=== PATIENT | female | born 1965 | race Caucasian/White ===

== ENCOUNTER 2020-10-14 08:47 | Emergency (ER) | payer OTHER, SELFPAY ==
--- NOTE | ~2020-10-14 | XR_ITS ---
EXAMINATION: XR abdomen/kub 1V EXAM DATE: 10/14/2020 09:33 INDICATION: Blood in urine, history of kidney stones . TECHNIQUE: Frontal projection(s) of the abdomen for interpretation. Comparison is made to prior exami nation from 06/03/2015. FINDINGS: There is moderate amount of colonic stool and gas. No small bowel dilation, nonobstructiv e bowel gas pattern. There are no suspicious calcifications identified. There is no organomegaly suspected. The bones are unremarkable. IMPRESSION: Moderate amount of colonic stool. Reviewed, dictated and finalized at location B.
[2020-10-14 08:57] VITALS: BP 136/75; PULSE 61; RESP 16; TEMP 36.1; O2SAT 100
--- NOTE | 2020-10-14 09:58 | ED.FEMALEGU ---
HPI - Female Genitourinary General Chief complaint: Urogenital-Female Stated complaint: Bllod in Urine Time Seen by Provider: 10/14/20 09:58 Source: patient, RN notes reviewed and old records reviewed Mode of arrival: ambulatory Limitations: no limitations History of Present Illness HPI Narrative: 55-year-old female who presents to [facility] with complaints of blood in urine since Saturday with history of kidney stones and some tenderness on the right mid to lower abdomen on palpation. Patient denies any fever chills or sweats, denies any CVA tenderness, denies any burning frequency or urgency with her urination. Patient states she is getting ready to go on special trip in the next few days and was concerned it could be stone. MD elicited complaint: other (Hematuria) Pertinent past history: other (kidney stones) Onset (ago): day(s) (day 4) Severity scale (1-10): 2 Quality of pain: other (Only on palpation) Vaginal discharge: none Vaginal bleeding: none Urinary symptoms: Hematuria Exacerbating factors: none Relieving factors: none Associated symptoms: abdominal pain (Only on palpation to right) Treatment prior to arrival: none Sexual activity: Yes Patient : No Related Data Home Medications Medication Instructions Recorded Confirmed aspirin [Aspir-81] 81 mg PO DAILY 10/14/20 10/14/20 bempedoic acid [Nexletol] 180 mg PO DAILY 10/14/20 10/14/20 biotin 5 mg PO DAILY 10/14/20 10/14/20 cholecalciferol (vitamin D3) 25 mcg PO DAILY 10/14/20 10/14/20 [Vitamin D3] coenzyme [id number] E [CoQ10 SG 1 cap PO DAILY 10/14/20 10/14/20 100] levocetirizine [Xyzal] 5 mg PO DAILY PRN 10/14/20 10/14/20 lisinopril 10 mg PO DAILY 10/14/20 10/14/20 tretinoin 1 applic TOPICAL EVERY OTHER DAY 10/14/20 10/14/20 valacyclovir 500 mg PO PRN PRN 10/14/20 10/14/20 Allergies Allergy/AdvReac Type Severity Reaction Status Date / Time Sulfa (Sulfonamide Allergy Intermediate RASH Verified 10/14/20 09:50 Antibiotics) Review of Systems Review of Systems: CONSTITUTIONAL: Denies fever, chills, or sweats. EYES: Denies visual changes, redness, or discharge. ENT: Denies rhinorrhea, congestion, sore throat, or otalgia. CARDIOVASCULAR: Denies chest pain, palpitations, or edema. RESPIRATORY: Denies cough or dyspnea. GASTROINTESTINAL: Tenderness to right mid abdominal area, no nausea, vomiting, or diarrhea. No CVA tenderness GENITOURINARY: Denies dysuria positive hematuria. SKIN: Denies rash or itching. MUSCULOSKELETAL: Denies back pain, joint pain, or myalgia. NEUROLOGIC: Denies headache, numbness, or weakness. PSYCHIATRIC: Denies anxiety or depression. All systems reviewed & are unremarkable except as noted in HPI and below PMFSH Past Medical History Medical History (Updated 10/17/20 @ 14:12 by Jeanne Motta NP) Dyslipidemia Kidney stones Myocardial infarction Seasonal allergies Surgical History Surgical History (Updated 10/17/20 @ 14:16 by Jeanne Motta NP) H/O inguinal hernia repair H/O: hysterectomy Previous section Family History Family History Mother , HEART / STROKE No problems noted. Father , HEART PROBLEMS No problems noted. Social History Social History Smoking status: Never smoker Alcohol use details: DRINK ONCE IN A BLUE HANLEY Substance use: never Gender identity (if verbalized by the patient): Female Comments At time of signature, agree with nursing past medical, surgical, social and family history. There is no relevant family history pertinent to the presenting complaint Exam Narrative: GENERAL: Well-appearing, well-nourished, and in no acute distress. HEAD: Normocephalic, atraumatic. EYES: PERRLA and EOMI. ENT: Nares clear, no rhinorrhea or epistaxis. Mucous membranes moist. NECK: Supple.no lymphadenopathy CHEST: Clear to auscultation
== END 2020-10-14 10:08 | disposition short-term general hospital (02) ==
PROVIDERS: Emergency Provider Registered Nurse; PCP Internal Medicine
DX: R31.0 Gross hematuria (principal); E78.5 Hyperlipidemia, unspecified; I25.2 Old myocardial infarction
CPT/HCPCS: 74018; 81003; 99213; G0463

== ENCOUNTER 2020-10-14 10:24 | Emergency (ER) | payer OTHER, SELFPAY ==
--- NOTE | ~2020-10-14 | CT_ITS ---
EXAMINATION: CT abdomen pelvis wo/w con DATE: 10/14/2020 13:19 INDICATION: Gross hematuria TECHNIQUE: Computed tomography (CT) of the abdomen and pelvis was performed without intravenous contr ast. CT of the abdomen and pelvis was then performed with a total of 130 mL Omnipaque-350 intravenous contrast using a double-bolus technique for simultaneous opacification of the renal parenchyma and r enal collecting system. The dose-length product was 971.88 mGy-cm. COMPARISON: 04/29/15 FINDINGS: Minimal scattered discoid atelectasis at the bilateral lung bases. Heart size is normal. No pericardi al or pleural effusion. Liver, gallbladder, spleen, pancreas and bilateral adrenal glands are normal. 4 mm low-attenuation likely renal cyst at the lower pole of the right kidney. 1-2 mm nonobstructing stone at the lower pole of the left kidney. No ureteral stones or hydronephrosis. Bilateral renal col lecting systems, the left ureter and proximal to mid right ureter are opacified with contrast and dem onstrate no evident filling defects or mucosal irregularities. Bladder is normal. The uterus is not i dentified and has likely been surgically resected. Moderate amount of stool in the redundant cecum wh ich situated in the deep pelvis at the uterine fossa. The appendix is not visualized. No pericecal in flammatory change to suggest acute appendicitis. No bowel obstruction. Small amount of likely physiol ogic free fluid in the cul-de-sac. No free intraperitoneal gas. Mild scattered degenerative skeletal changes in the spine and pelvis. IMPRESSION: 1. 1-2 mm nonobstructing left renal stone. No ureteral stones or hydronephrosis. Reviewed, dictated and finalized at location A. IMPRESSION: 1. 1-2 mm nonobstructing left renal stone. No ureteral stones or hydronephrosis .
[2020-10-14 10:36] VITALS: BP 163/80; PULSE 55; RESP 16; TEMP 36.4; O2SAT 100
[2020-10-14 10:48] VITALS: BP 163/80; PULSE 55; RESP 18; TEMP 36.2; O2SAT 100
[2020-10-14 11:30] VITALS: BP 142/68; PULSE 60; RESP 16; TEMP 36.6; O2SAT 100
--- NOTE | 2020-10-14 11:43 | ED.FEMALEGU ---
HPI - Female Genitourinary General Chief complaint: Urogenital-Female Stated complaint: blood in urine, sent by urgent care Time Seen by Provider: 10/14/20 10:45 Source: patient and RN notes reviewed Mode of arrival: ambulatory Limitations: no limitations History of Present Illness HPI Narrative: This is a 55 year old female with history of hypertension and CAD who presents for evaluation of hematuria. She noticed blood in her urine on Saturday. She reports her hematuria resolved on Saturday and she noticed a small amount yesterday. Today she reports increasing blood in her urine. She states if she drinks more fluid, her urine seems to clear. She reports drinking very little last night and today. She has history of kidney stones so she did not think much of her hematuria. She reports mild right side abdominal discomfort. She denies nausea, vomiting or fever. She takes aspirin 81 mg for history of heart attack years ago. Related Data Home Medications Medication Instructions Recorded Confirmed aspirin [Aspir-81] 81 mg PO DAILY 10/14/20 10/14/20 bempedoic acid [Nexletol] 180 mg PO DAILY 10/14/20 10/14/20 biotin 5 mg PO DAILY 10/14/20 10/14/20 cholecalciferol (vitamin D3) 25 mcg PO DAILY 10/14/20 10/14/20 [Vitamin D3] coenzyme K98-[id number] E [CoQ10 SG 1 cap PO DAILY 10/14/20 10/14/20 100] levocetirizine [Xyzal] 5 mg PO DAILY 10/14/20 10/14/20 lisinopril 10 mg PO DAILY 10/14/20 10/14/20 tretinoin 1 applic TOPICAL HS 10/14/20 10/14/20 valacyclovir 500 mg PO DAILY 10/14/20 10/14/20 Allergies Allergy/AdvReac Type Severity Reaction Status Date / Time Sulfa (Sulfonamide Allergy Intermediate RASH Verified 10/14/20 09:50 Antibiotics) Review of Systems Review of Systems: All systems reviewed & are unremarkable except as noted in HPI and below PMFSH Past Medical History Medical History (Updated 10/14/20 @ 13:59 by Virginia Piedra MD) Myocardial infarction Surgical History Surgical History (Updated 10/14/20 @ 10:17 by Jeanne Motta NP) H/O: hysterectomy Family History Family History Mother , HEART / STROKE No problems noted. Father , HEART PROBLEMS No problems noted. Social History Social History Smoking status: Never smoker Alcohol use details: DRINK ONCE IN A BLUE HANLEY Substance use: never Gender identity (if verbalized by the patient): Female Exam Const: General: no acute distress and alert Orientation/consciousness: patient oriented x3 Eyes: EOM: EOMs intact bilaterally Chest: Chest palpation & inspection: normal inspection of the chest Resp: Effort & Inspection: normal respiratory effort and no retractions Auscultation: clear to auscultation bilaterally Cardio: Rate: regular rate Rhythm: regular rhythm Heart sounds: no murmurs GI: GI Palp: Yes Soft to palpation, No Tenderness to palpation present (GI) and No Guarding due to palpation present (GI) Auscultation: normal bowel sounds Skin: General skin exam: normal color Rashes: no rashes Neuro: General: patient oriented x3, moves all extremities and CN's II-XI intact bilaterally Course Reevaluation(s) Reevaluation #1: I discussed with patient CT findings and labs. URine shows microscopic hematuria but no UTI. I discussed follow up with pcp or urology. She states she will follow up with PCP Date: 10/14/20 Time: 13:57 Vital Signs Vital signs: Vital Signs Temperature 97.6 F 10/14/20 10:36 Pulse Rate 55 L 10/14/20 10:36 Respiratory Rate 16 10/14/20 10:36 Blood Pressure 163/80 H 10/14/20 10:36 Pulse Oximetry 100 10/14/20 10:36 Temperature 97.8 F 10/14/20 11:30 Pulse Rate 62 10/14/20 14:18 Respiratory Rate 16 10/14/20 14:18 Blood Pressure 142/80 H 10/14/20 14:18 Pulse Oximetry 100 10/14/20 14:18 MDM - Female Genitour
[2020-10-14 11:45] LABS: Basophils Absolute Auto 0.1 K/mm3 (0.0-0.1); Basophils Percent Auto 1.2 % (0.2-1.2); Eosinophils Absolute Auto 0.1 K/mm3 (0-0.3); Hematocrit 43.1 % (37.0-47.0); Hemoglobin 14.4 g/dL (12.0-15.0); Immature Granulocyte Absolute 0.01 K/mm3 (0.00-0.031); Immature Granulocyte Percent A 0.2 % (0-0.5); Lymphocytes Absolute Auto 1.51 K/mm3 (0.9-3.2); Mean Corpuscular HGB Conc 33.4 g/dl (32-36); Mean Corpuscular Hemoglobin 32.5 pg (26-34); Mean Corpuscular Volume 97.3 fl (80-100); Mean Platelet Volume 10.3 fl (7.4-10.4); Monocytes Absolute Auto 0.4 K/mm3 (0.1-0.6); Neutrophils Absolute Auto 3.8 K/mm3 (1.3-6.7); Neutrophils Percent Auto 65.6 % (45.5-73.1); Platelet Count Result 228 k/mm3 (150-375); Red Blood Count 4.43 M/mm3 (4.2-5.4); Red Cell Distribution Width 12.7 % (11.5-14.5); White Blood Count 5.8 K/mm3 (4.5-10.0)
[2020-10-14 11:52] LABS: Add Urine Microscopic? YES; Appearance Urine Cloudy (Clear); Bilirubin Urine Negative (Negative); Blood Urine 3+ (Negative); Color Urine Yellow (Yellow); Glucose Urine UA Negative (Negative); Ketones Urine Negative (Negative); Leukocyte Esterase Ur Negative LEU/UL (Negative); Mucus Urine Rare /lpf; Nitrate Urine Negative (Negative); Protein Urine 1+ mg/dL (Negative); RBC Urine >75 /hpf (0-2); Specific Grav Ur 1.021 (1.001-1.035); Squamous Epithelial Cell Urine Occasional /hpf (Few); Urobilinogen Urine Negative mg/dL (<2.0)
[2020-10-14 11:57] LABS: Alanine Aminotransferase 18 U/L (4-35); Albumin Level 4.5 g/dL (3.5-5.1); Alkaline Phosphatase 75 U/L (38-126); Anion Gap 8 mmol/L (8-16); Aspartate Amino Transferase 30 U/L (14-36); Bilirubin,Total 0.7 mg/dL (0.2-1.3); Blood Urea Nitrogen 19 mg/dL (7-17); Carbon Dioxide 28 mmol/L (22-30); Chloride 103 mmol/L (98-107); Estimated CRCL calculation 62 ml/min; Estimated Glomerular Filt Rate > 60; Glucose 86 mg/dL (65-110); Potassium 4.4 mmol/L (3.4-5.0); Sodium 139 mmol/L (137-145)
[2020-10-14] MEDS: SODIUM CHLORIDE 0.9% IV 1,000 ML 999 ML IV CONT (12:16)
[2020-10-14 14:18] VITALS: BP 142/80; PULSE 62; RESP 16; O2SAT 100
== END 2020-10-14 14:20 | disposition home or self-care (01) ==
PROVIDERS: Emergency Provider General Practice; PCP Internal Medicine
DX: R31.0 Gross hematuria (principal); N20.0 Calculus of kidney; I10 Essential (primary) hypertension; I25.10 Atherosclerotic heart disease of native coronary artery without angina pectoris; I25.2 Old myocardial infarction; Z79.82 Long term (current) use of aspirin
CPT/HCPCS: 36415; 74178; 80053; 81001; 85025; 96360; 99284; J7030; Q9967

== ENCOUNTER 2021-02-21 13:48 | Outpatient (CLI) | payer OTHER, SELFPAY ==
--- NOTE | ~2021-02-21 | XR_ITS ---
EXAMINATION: XR abdomen/kub 1V EXAM DATE: 02/21/2021 14:09 INDICATION: Gross hematuria. TECHNIQUE: Frontal projection of the upper abdomen, frontal projection lower abdomen/pelvis for inter pretation. Comparison is made to prior examination from 10/14/2020. FINDINGS: There is contrast within the bladder and renal calyces. No recent injection at this instit ution identified. Mildly patulous appearing left renal pelvis, similar appearance on a CT urogram whi ch was performed in September. No bladder diverticula or caliectasis. Mild bony degenerative changes. Mode rate amount of colonic stool and gas. IMPRESSION: Contrast in collecting system. Correlate with any CT scan obtained immediately prior. Reviewed, dictated and finalized at location G. K LIFTER
== END 2021-02-21 13:49 | disposition home or self-care (01) ==
LOC: ANHIMG 13:54
PROVIDERS: PCP Internal Medicine; Visit Provider Urology
DX: R31.0 Gross hematuria (principal)
CPT/HCPCS: 74018

== ENCOUNTER 2021-03-01 09:14 | Outpatient (CLI) | payer OTHER, SELFPAY ==
--- NOTE | 2021-03-01 09:28 | ECG_ITS ---
Measurements Intervals [place] Rate: 65 P: 62 VT: 138 QRS: 36 QRSD: 84 T: 57 QT: 395 QTc: 412 Interpretive Statements SINUS RHYTHM WITH SINUS ARRHYTHMIA CANNOT RULE OUT SEPTAL INFARCT, AGE INDETERMINATE BASELINE ARTIFACT- I, II, III, AVR, AVL, AVF, V1-V6 ABNORMAL ECG Electronically Signed On 03-01-2021 10:51:09 TYPEWRITER ALIGNER by Toney Petersen D.O.
[2021-03-01 09:56] LABS: INR 0.9; Partial Thromboplastin Time 24.7 SECONDS (22.3-36.8); Prothrombin Time 12.2 Seconds (11.1-14.7)
== END 2021-03-01 09:15 | disposition home or self-care (01) ==
LOC: ANHSURGERY 09:19
PROVIDERS: PCP Internal Medicine; Visit Provider Urology
DX: N20.0 Calculus of kidney (principal); I10 Essential (primary) hypertension; Z01.818 Encounter for other preprocedural examination; R94.31 Abnormal electrocardiogram [ECG] [EKG]
CPT/HCPCS: 36415; 85610; 85730; 93005

== ENCOUNTER 2021-03-03 03:28 | Day surgery (SDC) | payer OTHER, SELFPAY ==
[2021-02-28 10:50] VITALS: BMI 21.4
--- NOTE | 2021-02-28 13:00 | PC.NURSE ---
Report to the Outpatient Waiting Room, entrance under the green pavilion located off [facility], at 1000 on date 03-03-21. OR Time: 1200. - You and your visitor will be asked a series of questions to screen for COVID 19 for your protection. - A mask is required within the hospital. - Only one visitor is allowed at this time. Patient visitors will be guided where to wait when not with patient. Preoperative COVID Testing Requirements: No COVID Test needed if: (proof is required; if not received patient will have Rapid Test prior to entry) - Patient has received COVID Vaccine at least 14 days prior to procedure date or - Patient has positive COVID test result within last 90 days of surgery date. COVID Test needed if above criteria is not met If not COVID vaccinated a COVID test must be conducted within 72 hours of surgery and patient is asked to isolate self from time of testing until procedure. You will go to the [email or web address] for your COVID testing. The [email or web address] [facility] site is located at the corner of [address] [facility]. You will only be called if COVID results are positive and your surgeon may reschedule your elective surgery date. Patients may have clear liquids (water, carbonated beverages, clear teas, apple juice) until 3 hours prior to surgery with a maximum of 20 ounces. 0900 - No food from midnight until time of surgery - Infants may have breast milk until 4 hours before surgery, infant formula 6 hours prior to surgery. - Children will be allowed to drink immediately following surgery. If applicable, please bring a bottle or sippy cup to assist with drinking. Juice, water, soda, and popsicles are readily available. For infants on formula, please bring formula the day of surgery. Pacifiers are allowed. Take the following medications with a SIP of water the morning of surgery: Tylenol if needed Medications to discontinue per physician: aspirin per Dr. Kohli; vitamins and supplements 02-28-21 Please no make-up, nail occitan, hairspray, perfume, deodorant, or body powder the day of surgery. No jewelry (including any body piercings) or valuables the day of surgery, leave them at home. Please take a shower or bath the night before, or the morning of, surgery with an antibacterial soap. Wear comfortable, loose fitting clothing. Children are encouraged to wear pajamas. - Jewelry must be removed prior to entering the operating room. Rings and piercings that are not removed may be cut off. - The hospital will not accept responsibility for valuables. - Please leave all valuables, including medications, at home the day of surgery. If you are going home after surgery, a licensed mixer driver must drive you home. - NO public transportation without another adult. - We recommend that an adult stay with you for 24 hours following discharge. - We also recommend that you do not drive, make important decision, drink alcoholic beverages, or take any drugs that were not prescribed by your health care provider for at least 24 hours after your discharge time. For Pediatric surgeries, we recommend two adults accompany the child home (only one inside the building at this time). Follow any additional instructions given to you from your surgeon. Telephone instructions given to Magaly Sánchez and asked if any additional questions and then verbalized understanding. Patient advised to call surgeon office or pre surgery nurse liaison [phone] if any additional questions.
[2021-03-03] VITALS (11 sets, daily range): BP systolic 146–166; BP diastolic 71–90; PULSE 53–63; RESP 13–16; TEMP 36.3–36.6; O2SAT 97–100
--- NOTE | ~2021-03-03 | XR_ITS ---
EXAMINATION: XR abdomen/kub 1V EXAM DATE: 03/03/2021 10:44 INDICATION: Left-sided stone. TECHNIQUE: Frontal projection of the upper abdomen, frontal projection lower abdomen/pelvis for inter pretation. Correlation is made to KUB 02/21/2021. FINDINGS: There is moderate amount of colonic stool and gas. No small bowel dilation, nonobstructiv e bowel gas pattern. There are no suspicious calcifications identified. There is no organomegaly suspected. The bones are unremarkable. Lung bases unremarkable. IMPRESSION: Moderate amount of colonic stool. Reviewed, dictated and finalized at location B. RISK SPECIALIST
--- NOTE | 2021-03-03 06:47 | WPDHPUPDATE1 ---
History and Physical Update Update Date/Time: 03/03/21 06:47 History and Physical has been reviewed, including an updated exam of the patient. There are NO changes in the patient's condition. Risks, benefits, and alternatives have been discussed and questions answered. Patient agrees to proceed with procedure.
--- NOTE | 2021-03-03 11:15 | P.PNAN_ITS ---
Anes - Initial Pre Proc Eval Procedure: Operation Date: 03/03/21 12:30 Proposed Procedures p Cystoscopy, Left Retrograde Pyelogram, Left Stent Placement - Michael Kohli MD s Left Extracorporeal Shock Wave Lithotripsy - Michael Kohli MD Date/Time: 03/03/21 11:15 Surgeon: Michael Kohli MD Pre Op Diagnosis: kidney stones Patient Data Age: 55 Gender: F Height: 1.75 m Weight: 65.77 kg Allergies Allergy/AdvReac Type Severity Reaction Status Date / Time Sulfa (Sulfonamide Allergy Intermediate RASH Verified 03/03/21 11:02 Antibiotics) Home Medications Medication Instructions Recorded Confirmed Type aspirin [Aspir-81] 81 mg PO DAILY 10/14/20 03/03/21 History biotin 5 mg PO DAILY 10/14/20 03/03/21 History cholecalciferol (vitamin D3) 25 mcg PO DAILY 10/14/20 03/03/21 History [Vitamin D3] coenzyme [id number] E [CoQ10 SG 1 cap PO DAILY 10/14/20 03/03/21 History 100] levocetirizine [Xyzal] 5 mg PO DAILY PRN 10/14/20 03/03/21 History lisinopril 10 mg PO DAILY 10/14/20 03/03/21 History tretinoin 1 applic TOPICAL EVERY OTHER DAY 10/14/20 03/03/21 History acetaminophen [Tylenol] 650 mg PO Q6H PRN 02/28/21 03/03/21 History gyazgbhk-zdr-vsmz-FA-lutein 1 tablet PO DAILY 02/28/21 03/03/21 History [Multivitamin Women 50 Plus] omega-3 fatty acids [Fish Oil] 1,000 mg PO DAILY 02/28/21 03/03/21 History Patient hx anesthesia problems: none Family hx anesthesia problems: none Results Review: All pre-operative results and documents have been reviewed as part of the pre-operative evaluation. [facility] Past Medical History Medical History Dyslipidemia Kidney stones Myocardial infarction Seasonal allergies Surgical History Surgical History H/O inguinal hernia repair H/O: hysterectomy Previous section Family History Family History Mother , HEART / STROKE No problems noted. Father , HEART PROBLEMS No problems noted. Social History Social History Smoking status: Never smoker Second hand tobacco smoke exposure: No Alcohol intake: current Alcohol use details: DRINK ONCE IN A BLUE HANLEY Substance use: never Substance use type: does not use Living arrangements: with family Gender identity (if verbalized by the patient): Female Spiritual care concerns: No Anes - Eval Final PreProcedure Day of Procedure 03/03/21 11:15 Patient weight: normal Heart: regular rate and rhythm Lungs: clear to auscultation Airway: Mallampati scale class II Neurological: alert and oriented Last oral intake: >/= 8 hours ASA classification: III Emergent: no Anesthetic plan: proceed Anesthesia type and monitoring: general LMA and standard monitoring Results Review: All pre-operative results and documents have been reviewed as part of the pre-operative evaluation. Informed Consent: The patient's anesthetic plan and its attendant risks and benefits were discussed with the patient/family/POA. Questions were solicited and answers provided to the satisfaction of the patient/family/POA.
[2021-03-03] MEDS: LACTATED RINGERS 1,000 ML 30 ML IV CONT (11:17)
[2021-03-03] MEDS: ceFAZolin 2 GM/D5W 50 ML 2 GM/50 ML BAG IVPB (11:49)
[2021-03-03] MEDS: KETOROLAC 30 MG/ML VIAL (*BKC) IV PUSH ×2 (11:58→14:20)
--- NOTE | 2021-03-03 12:17 | P.OP_ITS ---
Procedure Note - Detailed Date of Procedure 03/03/21 Pre-op Diagnosis 6mm left renal stone Gross hematuria Post-op Diagnosis same Procedure Performed Cystoscopy, left ESWL Surgeon Michael Kohli MD Anesthesia general Description of Procedure The patient was brought to the operative suite where she was placed in the frog- legged position on the Dornier lithotripter table. Flexible cystoscopy was undertaken with a 16F flexible cystoscopy. Her urethra and bladder neck were endoscopically normal. The bladder mucosa was normal and there was a single, orthotopic ureteral orifice bilaterally. A 0.035 glidewire was advanced into the left renal pelvis under fluoroscopy to help identify the 6mm left renal pelvic stone. The patient was then repositioned in the supine position and the focal point of the lithotriptor was placed at a 6mm left renal pelvic calculus. A total of 2500 shocks were delivered at a power setting of 4. There appeared to be good fragmentation of the stone. The patient tolerated the procedure well and was taken to the recovery room in good condition. Estimated Blood Loss 0 Drains No Packing No Pathology none sent Complications No immediate complications Condition stable Disposition PACU
[2021-03-03] MEDS: fentaNYL CITRATE INJ (*CRX) 100 MCG/2 ML VIAL 25 MCG IV PUSH ×6 (13:15→14:05)
[2021-03-03] MEDS: HYDROmorphone HCL INJ (*CRX) 1 MG/ML SYR 0.5 MG IV PUSH ×3 (14:15→14:38)
[2021-03-03] MEDS: KETOROLAC 30 MG/ML VIAL (*BKC) IM (14:25)
[2021-03-03] MEDS: ONDANSETRON INJ 4 MG/2 ML VIAL IV PUSH (14:33)
[2021-03-03] MEDS: oxyCODONE HCL (*CRX) 5 MG TAB IR PO (15:58)
[2021-03-03] MEDS: SCOPOLAMINE 1.5 MG PATCH TRANSDERM (16:18)
[2021-03-03] MEDS: diphenhydrAMINE HCl INJ 50 MG/ML VIAL 25 MG IV PUSH (16:20)
== END 2021-03-03 17:00 | disposition home or self-care (01) ==
PROVIDERS: PCP Internal Medicine; Visit Provider Urology
PROC: (CPT 52352; principal; 2021-03-03 12:30)
PROC: (CPT 50590; 2021-03-03 12:30)
DX: N20.0 Calculus of kidney (principal); R31.0 Gross hematuria; E78.5 Hyperlipidemia, unspecified; I25.2 Old myocardial infarction; Z79.82 Long term (current) use of aspirin
CPT/HCPCS: 52000; 50590; 74018; A9270; J0690; J1170; J1200; J1885; J2250; J2405; J2704; J3010; J7120

== ENCOUNTER 2021-03-21 11:38 | Outpatient (CLI) | payer OTHER, SELFPAY ==
--- NOTE | ~2021-03-21 | XR_ITS ---
EXAMINATION: XR abdomen/kub 1V EXAM DATE: 03/21/2021 11:53 INDICATION: N20.0 - Calculus of kidney . TECHNIQUE: Frontal projection(s) of the abdomen for interpretation. Comparison is made to prior exami nation from 03/03/2021. FINDINGS: There is moderate amount of colonic stool and gas. No small bowel dilation, nonobstructiv e bowel gas pattern. There are no suspicious calcifications identified. There is no organomegaly suspected. The bones are unremarkable. There is no free intraperitoneal air. The lung bases are clear. IMPRESSION: Moderate amount of colonic stool. Reviewed, dictated and finalized at location A. ISH FACULTY MEMBER
== END 2021-03-21 11:39 | disposition home or self-care (01) ==
LOC: ANHIMG 11:43
PROVIDERS: PCP Internal Medicine; Visit Provider Urology
DX: N20.0 Calculus of kidney (principal)
CPT/HCPCS: 74018

== ENCOUNTER 2021-10-18 08:35 | Outpatient (CLI) | payer OTHER, SELFPAY ==
--- NOTE | ~2021-10-18 | XR_ITS ---
EXAM: XR abdomen/kub 1V DATE: 10/18/2021 08:49 HISTORY: LEFT RENAL STONE X 1 YR. . COMPARISON: 03/21/2021. FINDINGS: Normal bowel gas pattern. No organomegaly. No abnormal abdominal calcification. No change in the lumbar spine and hips. IMPRESSION: No radiographic evidence of nephrolithiasis. Reviewed, dictated and finalized at location K.
== END 2021-10-18 08:36 | disposition home or self-care (01) ==
LOC: ANHIMG 08:36
PROVIDERS: PCP Internal Medicine; Visit Provider Urology
DX: N20.0 Calculus of kidney (principal)
CPT/HCPCS: 74018

== ENCOUNTER 2022-03-07 09:09 | Outpatient (CLI) | payer OTHER, SELFPAY ==
[2022-03-07 10:26] LABS: Alanine Aminotransferase 26 U/L (6-35); Albumin Level 4.6 g/dL (3.5-5.1); Alkaline Phosphatase 73 U/L (38-126); Anion Gap 4 mmol/L (8-16); Aspartate Amino Transferase 35 U/L (14-36); Bilirubin,Total 0.7 mg/dL (0.2-1.3); Blood Urea Nitrogen 16 mg/dL (7-17); Calcium 9.2 mg/dL (8.4-10.2); Carbon Dioxide 31 mmol/L (22-30); Chloride 103 mmol/L (98-107); Estimated Glomerular Filt Rate > 60; Glucose 91 mg/dL (65-110); Potassium 4.3 mmol/L (3.4-5.0); Sodium 138 mmol/L (137-145)
== END 2022-03-07 09:10 | disposition home or self-care (01) ==
LOC: ANHLAB 09:10
PROVIDERS: PCP Internal Medicine; Visit Provider Internal Medicine Cardiovascular Disease
DX: I25.10 Atherosclerotic heart disease of native coronary artery without angina pectoris (principal)
CPT/HCPCS: 36415; 80053

== ENCOUNTER → 2022-11-20 07:16 | Outpatient (CLI) | payer OTHER, SELFPAY ==
--- NOTE | ~2022-11-20 | XR_ITS ---
EXAMINATION: XR abdomen/kub 1V INDICATION: Calculus of the kidney TECHNIQUE: Supine views of the abdomen were obtained on 2 radiographs. COMPARISON: 10/18/2021 FINDINGS: No urolithiasis is identified. The bowel gas pattern is normal. A moderate volume of coloni c stool is present. There is mild osteoarthritis of the hips. The visualized lung bases are clear. IMPRESSION: 1. No urolithiasis identified. Reviewed, dictated and finalized at location L.
== END ==
PROVIDERS: PCP Nurse Practitioner; Visit Provider Urology
DX: N20.0 Calculus of kidney (principal)
CPT/HCPCS: 74018

== ENCOUNTER 2024-02-05 10:24 | Outpatient (CLI) | payer OTHER, SELFPAY ==
[2024-02-07 09:28] LABS: CRP, High Sensitivity 1.9 mg/L
[2024-02-07 16:58] LABS: Lipoprotein A <10 nmol/L
== END 2024-02-05 10:25 | disposition home or self-care (01) ==
LOC: ANHLAB 10:26
PROVIDERS: PCP Nurse Practitioner Family; Visit Provider Internal Medicine Cardiovascular Disease
DX: I25.10 Atherosclerotic heart disease of native coronary artery without angina pectoris (principal)
CPT/HCPCS: 36415; 83695; 86141

== ENCOUNTER 2024-06-05 09:37 | Emergency (ER) | payer OTHER, SELFPAY ==
--- NOTE | ~2024-06-05 | XR_ITS ---
Right Knee Technique: AP and lateral views were obtained. Clinical History: Pain Findings: No fracture or dislocation is seen. Osseous alignment is anatomic. Joint spaces are preserv ed without degenerative or erosive change. Soft tissues are unremarkable. No joint effusion is seen. Impression: Unremarkable right knee radiographs. Reviewed, dictated and finalized at location . Impression: Unremarkable right knee radiographs.
--- NOTE | ~2024-06-05 | XR_ITS ---
Left Knee Technique: AP and lateral views were obtained. Clinical History: Pain Findings: No fracture or dislocation is seen. Osseous alignment is anatomic. Joint spaces are preserv ed without degenerative or erosive change. Soft tissues are unremarkable. No joint effusion is seen. Impression: Unremarkable left knee radiographs. Reviewed, dictated and finalized at location . Impression: Unremarkable left knee radiographs.
--- NOTE | 2024-06-05 09:39 | ED.EXTPRO ---
HPI - Extremity Problem General Chief complaint: Extremity Problem,Nontraumatic Stated complaint: both knees painful, water on knees Time Seen by Provider: 06/05/24 09:38 Source: patient Mode of arrival: ambulatory Limitations: no limitations History of Present Illness HPI Narrative: Magaly is a 59-year-old female patient presenting to the clinic today with complaints of bilateral knee pain/swelling. She reports this is been going on for approximately 6 months. States she is a runner and likes to work out. States the pain was worse in the right knee and she feels as though she over compensated and now she is having more pain and swelling in the left knee and the right knee has improved. Has been propping her knees up, using ice, and applying arthritis cream. Rates her pain currently a 5/10. Does feel as though her knees gets stiff when she is setting or lying for long periods of time. Denies any history of gout, psoriatic arthritis, or rheumatoid arthritis. Related Data Home Medications ?Medication ?Instructions ?Recorded ?Confirmed ?Last Taken ?Type aspirin 81 mg tablet,delayed 81 mg PO DAILY 10/14/20 06/05/24 02/24/21 History release cholecalciferol (vitamin D3) 25 25 mcg PO DAILY 10/14/20 06/05/24 02/24/21 History mcg (1,000 unit) chewable tablet (Vitamin D3) levocetirizine 5 mg tablet (Xyzal) 5 mg PO DAILY PRN Allergy Symptoms 10/14/20 06/05/24 03/01/21 History lisinopril 10 mg tablet 10 mg PO DAILY 10/14/20 06/05/24 03/02/21 History tretinoin 0.025 % topical cream 1 applic topical EVERY OTHER DAY 10/14/20 06/05/24 03/02/21 History pitavastatin calcium 1 mg tablet 2 mg PO DAILY 05/21/24 06/05/24 Unknown History (Livalo) Allergies Allergy/AdvReac Type Severity Reaction Status Date / Time Sulfa (Sulfonamide Allergy Intermediate RASH Verified 06/05/24 09:40 Antibiotics) Review of Systems Review of Systems: Pertinent positives per HPI. Patient denies any fever, chills, rash, headache, visual changes, dizziness, cough, runny nose, sore throat, shortness of breath, chest pain, palpitations, nausea, vomiting, diarrhea, constipation, abdominal pain, or any urinary issues. [facility] Past Medical History Medical History Kidney stones Myocardial infarction Seasonal allergies Dyslipidemia Surgical History Surgical History H/O inguinal hernia repair Previous section H/O: hysterectomy Family History Family History Mother , HEART / STROKE No problems noted. Father , HEART PROBLEMS No problems noted. Social History Social History Smoking status: Never smoker Second hand tobacco smoke exposure: No Alcohol intake: current Alcohol use details: occasionally Substance use: never Substance use type: does not use Do You Feel Safe in your Home?: Yes Lack of Transportation: No Lack of Food: Never True Current Housing: I Have Housing Concerned About Future Housing: No Difficulty Paying Gas/Electric Bills: No Difficulty Paying for Meds: No Currently Unemployed: No Education: High School Diploma/GED Difficulty w/ Childcare or Family Care: No Living arrangements: with family Occupation/Education: unemployed Gender identity (if verbalized by the patient): Female Sexual Orientation (if Verbalized by the Patient): Straight or Heterosexual Spiritual care concerns: No Comments At the time of my signature, I reviewed and agree with the nursing past medical, surgical, social, and family history. There is no relevant family history pertinent to the patient complaint. Exam Narrative: General: Well-developed, well nourished, in no apparent distress Head: Normocephalic, atraumatic. Cardio: Regular rate and rhythm, s1 and s2 normal, no murmur appreciated. Resp: Clear to auscultation bilaterally, no rhonchi, rales, wheezing or rubs. Musculoskeletal: No deformity, mild swelling to the left knee when compared to the right, tender to palpation over the the right superior lateral and anterior knee and over the left superior lateral and anterior knee, has limited range of motion (flexion) to the left knee due to pain and swelling, + ballottement test to left knee joint, negative Nadja, anterior drawer, posterio drawer, valgus, and varus testing, muscle strength strong and equal, peripheral pulse strong, no pitting edema, no cyanosis, normal gait and station Course Course Emergency Course: Portions of this record may have been created with voice recognition software. Level of Care: Express Care Visit Vital Signs Vital signs: Vital Signs Temperature 36.6 C 06/05/24 09:50 Pulse Rate 78 06/05/24 09:50 Respiratory Rate 16 06/05/24 09:50 Blood Pressure 135/70 06/05/24 09:50 Pulse Oximetry 99 06/05/24 09:50 Oxygen Delivery Room Air 06/05/24 09:50 Temperature 36.6 C 06/05/24 09:50 Pulse Rate 78 06/05/24 09:50 Respiratory Rate 16 06/05/24 09:50 Blood Pressure 135/70 06/05/24 09:50 Pulse Oximetry 99 06/05/24 09:50 Oxygen Delivery Room Air 06/05/24 09:50 Vital signs reviewed MDM - Extremity (Nontraumatic) MDM Narrative Medical decision making narrative: At the time of visit patient is resting comfortably on the exam table. Patient appears to be nontoxic. Diagnostics: Bilateral knee x-rays were performed. X-rays were negative for any sign of fracture, malalignment, knee effusion, or arthritis Plan: Patient has chronic bilateral knee pain-due to probable tendon inflammation. Prescription for Medrol Dosepak was sent to the pharmacy. Supportive measures were discussed with the patient and they voiced understanding discharge instructions and agrees to treatment plan. Return precautions reviewed Differential Diagnosis Differential diagnosis: Likely gout and other (Osteoarthritis, knee fusion, patellofemoral syndrome, rheumatoid arthritis, psoriatic arthritis, knee sprain, meniscus tear, acute internal derangement of the knee) Imaging Data Radiologist's impression: ITS Impressions Knee X-Ray 06/05/24 10:15 Impression: Unremarkable left knee radiographs. Knee X-Ray 06/05/24 10:16 Impression: Unremarkable right knee radiographs. Discharge Plan Discharge Clinical Impression: Bilateral knee pain Qualifiers: Chronicity: chronic Qualified Code(s): M25.561 - Pain in right knee Patient Disposition: Home, Self-Care Condition: Stable Instructions: Antibiotic Form, Knee Pain (ED) Additional Instructions: X-rays bilateral knees are negative for any sign of fracture, malalignment, arthritis, or joint effusion Rest, ice, elevate, and wear an arthur wrap as needed Take Medrol Dosepak as prescribed Tylenol/motrin for pain as discussed. Gradually bear weight No running or sports until healed. Follow up with your PCP if symptoms persist more than 1 week. Patient Language: Bulgarian Prescriptions: New methylprednisolone [Medrol (Brent)] 4 mg tablets,dose pack See Rx Instructions PO .COMPLEX Qty: 21 0RF Rx Instructions: orally per package directions No Action tretinoin 0.025 % cream 1 applic TOPICAL EVERY OTHER DAY aspirin 81 mg Tablet,Delayed Release (Dr/Ec) 81 mg PO DAILY lisinopril 10 mg tablet 10 mg PO DAILY levocetirizine [Xyzal] 5 mg Tablet 5 mg PO DAILY PRN (Reason: Allergy Symptoms) cholecalciferol (vitamin D3) [Vitamin D3] 25 mcg (1,000 unit) Tablet,Chewable 25 mcg PO DAILY Livalo 1 mg tablet 2 mg PO DAILY Follow-up/Referrals: Jaun Del Real MD [Primary Care Provider] - Time of Disposition: 10:38 Quality NIHSS Nursing Documentation ED NIHSS nursing documentation: reviewed/agree
[2024-06-05 09:50] VITALS: BP 135/70; PULSE 78; RESP 16; TEMP 36.6; O2SAT 99
== END 2024-06-05 10:47 | disposition home or self-care (01) ==
PROVIDERS: Emergency Provider Nurse Practitioner Family; PCP Family Medicine
DX: M25.562 Pain in left knee (principal); M25.561 Pain in right knee; E78.5 Hyperlipidemia, unspecified; I25.2 Old myocardial infarction; Z79.82 Long term (current) use of aspirin
CPT/HCPCS: 73560; 99214; G0463

== ENCOUNTER 2024-08-08 10:16 | Outpatient (CLI) | payer OTHER, SELFPAY ==
--- NOTE | ~2024-08-08 | MR_ITS ---
MRI of the left knee Clinical history: Pain Technique: Coronal proton density and proton density-weighted images, sagittal proton-density and T2 fat-sat images, and axial proton-density fat-saturated images were acquired. Findings: Anterior and posterior cruciate ligaments are intact. Medial collateral ligament and the la teral collateral ligament complex are intact. Popliteus tendon is intact. There is extensive oblique tear of the posterior horn of the medial meniscus. Lateral meniscus is int act. Focal grade 4 chondral fissure present at the patellar apex, and moderate chondral malacia along the medial facet, with focal subchondral cystic change and mild reactive marrow edema. There is extensive mild chondral thinning of the lateral femoral condyle. Extensor mechanism is intact. Small joint effusion present. No Calderon's cyst. There is prepatellar sof t tissue edema. Impression: Extensive oblique tear of the posterior horn of the medial meniscus. Mild degenerative changes, as detailed above, worst involving the patella. Prepatellar soft tissue edema, nonspecific. Small joint effusion. Reviewed, dictated and finalized at [facility]. Impression: Extensive oblique tear of the posterior horn of the medial meniscus. Mild degenerative changes, as detailed above, worst involving the patella. Prepatellar soft tissue edema, nonspecific. Small joint effusion.
== END 2024-08-08 10:17 | disposition home or self-care (01) ==
LOC: MICIMG 10:23
PROVIDERS: PCP Nurse Practitioner Family; Visit Provider Nurse Practitioner Family
DX: S83.242A Other tear of medial meniscus, current injury, left knee, initial encounter (principal); X58.XXXA Exposure to other specified factors, initial encounter; M17.12 Unilateral primary osteoarthritis, left knee
CPT/HCPCS: 73721

== ENCOUNTER 2025-01-01 09:48 | Outpatient (CLI) | payer OTHER, SELFPAY ==
--- NOTE | 2025-01-01 09:54 | ECG_ITS ---
Test Date: 2025-01-01 09:57:32 Measurements Intervals [place] Rate: 82 P: 57 NV: 129 QRS: 22 QRSD: 76 T: 68 QT: 382 QTc: 447 Interpretive Statements SINUS RHYTHM WITH OCCASIONAL VENTRICULAR PREMATURE COMPLEXES BORDERLINE ST-T WAVE ABNORMALITY- HIGH LATERAL LEADS BASELINE ARTIFACT- I, II, III, AVR, AVL, AVF BORDERLINE ECG No previous ECG available for comparison Electronically Signed On 01-01-2025 10:09:06 CDT by Toney Petersen D.O.
--- OUTSIDE RECORDS SUMMARY | 2025-01-01 10:24 | XMS_ITS | Encounter Summary ---
Author Organization [facility] Address [address] [address] Care Team Providers Care Upholstery Repairer Name Role Phone Jake Dowell MD Primary Care Provider [phone] Jake Dowell MD Primary Care Provider [phone] Francisco Goodman MD Primary Care Provider [phone] Chris Roa MD Primary Care Provider [phone] Jaun Del Real MD Primary Care Provider [phone] Adan Craft MD Unavailable [phone] Encounter Details Date Type Department Care Team (Late st Contact Info) Description 05/25/2016 Orders Only [facility] Provider, MD Jin [address] [place] [id number] Social History Tobacco Use Types Packs/Day Years Used Date Smoking Tobacco: Never Alcohol Use Standard Drinks/Week Comments No 0 (1 standard drink = 0.6 oz pur e alcohol) Comments Unknown Sex and Gender Information Value Date Recorded Sex Assigned at Not on file Legal Sex Female 12:50 AM STITCH MARKER Gender Identity Female 02/24/2020 8:26 AM STITCH MARKER Sexual Orientation Straight 02/24/2020 8: 26 AM STITCH MARKER documented as of this encounter Plan of Treatment Not on file documented as of this encounter Procedures Procedure Name Priority Date/Time Associated Diagnosis Comments CARDIOLOGY REPORT 05/25/2016 documented in this encounter Results * CARDIOLOGY REPORT (05/25/2016) Anatomical Region Laterality Modality Other Narrative 05/25/2016 Ordered by an unspecified provider. us Historical Provider [facility] SHREYA [place] Final Result documented in this encounter Visit Diagnoses Not on filedocumented in this encounter Care Teams Upholstery Repairer Relationship Specialty Start Date End Date Jake Dowell MD [address] [place] [address] PCP - General 06/15/16 02/28/21 Jake Dowell MD [address] [place] [address] PCP - General 08/13/08 06/14/16 Francisco Goodman MD [address] [facility] [address] [place] [address] PCP - General Internal Medicine 03/01/21 03/06/22 Chris Roa MD [address] [facility] [address] [place] [address] PCP - General Internal Medicine 03/07/22 01/29/23 Jaun Del Real MD [address] [facility] [address] [place] [address] PCP - General Family Practice 01/30/23 Adan Craft MD [address] [place] [address] Referring Physician Obstetrics and Gynecology 10/12/24 documented as of this encounter
--- OUTSIDE RECORDS SUMMARY | 2025-01-01 10:24 | XMS_ITS | Encounter Summary ---
Author Organization [facility] Address [address] [place] [address] Care Team Providers Care Concrete Batcher Name Role Phone Jake Dowell MD Primary Care Provider [phone] Encounter Details Date Type Department Care Team (Late st Contact Info) Description 02/21/2021 Lab Requisition [facility] [address] [place], [place] [id number] Rosalinda Alexis MD [address] [place], [place] [id number] Illness, unspecified Social History Tobacco Use Types Packs/Day Years Used Date Smoking Tobacco: Never Assessed Comments Unknown Sex and Gender Information Value Date Recorded Sex Assigned at Not on file Legal Sex Female 7:12 PM FIRE INSPECTOR Gender Identity Not on file Sexual Orientation Not on file documented as of this encounter Plan of Treatment Not on file documented as of this encounter Procedures Procedure Name Priority Date/Time Associated Diagnosis Comments PATH CONSULT ON REFERRED CASE Routine 02/16/2021 2:43 PM FIRE INSPECTOR Illness, unspecified documented in this encounter Results * PATH CONSULT ON REFERRED CASE (02/16/2021 2:43 PM FIRE INSPECTOR) Final Diagnosis URINE, VOIDED, THIN PREP, CYTOLOGY (OSC: [id number]; 02/16/2021): - Negative for high-grade urothelial carcinoma - Urothelial cells, squamous cells, and many red blood cells 02/23/2021 8:34 AM FIRE INSPECTOR [facility] at [address]34 FIRE INSPECTOR Microscopic Description and Comment Microscopic examination substantiates the final diagnosis. 02/23/2021 8:34 AM FIRE INSPECTOR [facility] Clinical History HEMATURIA, CYSTOSCOPY NEGATIVE 201402/23/2021 8:34 AM [facility] Materials Received 1 Prepared slide received from [facility] [id number]. All material will be returned. 02/23/2021 8:34 AM [facility] Disclaimer The performance characteristics of all immunohistochemical and indirect immunofluorescence stains (if any) cited in this report were determined by the Histopathology [facility] of [facility]. Some of these tests were developed by our own laboratory and have not been cleared or approved by the US Food and Drug Administration. The FDA does not require this test to go through premarket FDA review. These tests are used for clinical purposes. They should not be regarded as investigational or for research. This laboratory is certified under the Clinical Laboratory Improvement Amendments (CLIA) as qualified to perform high complexity clinical laboratory testing. This case has been personally reviewed and interpreted by the attending (teaching) pathologist. 02/23/2021 8:34 AM [facility] Case Report Surgical Pathology Report Case: [id number] Authorizing Provider: Rosalinda Alexis MD Collected: 02/16/2021 02:43 PM Ordering Location: [facility] Lab Received: 02/21/2021 02:43 PM Pathologist: Prosper Walker MD Specimen: Slide Consultation 02/23/2021 8:34 AM [facility] Embedded Images 02/23/2021 8:34 AM [facility] Pathology/Cytolo gy SURGICAL PATHOLOGY CONSULTATION AND REPORT ON REFERRED SLIDES PREPARED ELSEWHERE / Unknown 02/16/2021 2:43 PM FIRE INSPECTOR 02/21/2021 2:43 PM FIRE INSPECTOR us Rosalinda Alexis MD LAB - PATHOLOGY/CYTOLOGY ORDERAB LES Final Result [facility] [address] [phone] documented in this encounter Visit Diagnoses Diagnosis Illness, unspecified documented in this encounter Care Teams Concrete Batcher Relationship Specialty Start Date End Date Jake Dowell MD [address] [place] [address] PCP - General 06/28/09 documented as of this encounter
--- OUTSIDE RECORDS SUMMARY | 2025-01-01 10:24 | XMS_ITS | Clinical Summary ---
Author Organization [facility] Address [address] [facility] [address] [place] [id number] Care Team Providers Care Technical Services Assistant Name Role Phone Jake Dowell MD Primary Care Provider [phone] [facility] [employer],non-owned Affiliates and Associated Physician Practices is amultiple site organization consisting of ambulatory clinics and hospital sitesin [place], [place], [place]. This disclosure is being madepursuant to the Care Everywhere program and may not contain all information available regarding this patient. Last updated 17.[facility] Social History Tobacco Use Types Packs/Day Years Used Date Smoking Tobacco: Never Assessed Comments Unknown Sex and Gender Information Value Date Recorded Sex Assigned at Not on file Legal Sex Female 7:12 PM INFORMATICS PHARMACIST Gender Identity Not on file Sexual Orientation Not on file Plan of Treatment Health Maintenance Due Date Last Done Comments COLOGUARD (AGES 45-75) - COL ON CA SCREENING 1963 COLON MONITORING 1963 COLONOSCOPY - COLON CA SCREENING 1963 CT COLONOGRAPHY - COLON CA SCREENING 1963 Colorectal Cancer Screening 1963 FIT - COLON CA SCREENING 1963 FLEX SIG - COLON CA SCREENING 1963 LIPID TESTING 1963 MAMMOGRAM 1963 HIV SCREENING 1978 HEPATITIS C SCREENING 04/23/1981 DTAP/TDAP/TD VACCINES (1 - Tdap) 1982 PNEUMOCOCCAL VACCINE 50+ (1 of 1 - PCV) 2013 ZOSTER VACCINE (1 of 2) 2013 DEPRESSION SCREENING 03/18/2024 COVID-19 VACCINE (1 - 2023-2 5 season) 2024 INFLUENZA VACCINE (#1) 2024 Respiratory Syncytial Virus (RSV) Vaccine Pt: or over 60 yrs (1 - 1-dose 75+ series) 2038 HEPATITIS B VACCINE Aged Out No longe r eligible based on patient's age to complete this topic HIB VACCINE Aged Out No longer eligi ble based on patient's age to complete this topic HPV VACCINE Aged Out No longer eligi ble based on patient's age to complete this topic MENINGOCOCCAL (Group B) VACC INE SHARED DECISION-MAKING Aged Out No longer eligibl e based on patient's age to complete this topic MENINGOCOCCAL GROUPS A/C/Y/W VACCINE Aged Out No longer eligible b ased on patient's age to complete this topic Insurance [employer] Care Teams Technical Services Assistant Relationship Specialty Start Date End Date Jake Dowell MD [address] [place] [address] PCP - General 06/28/09
--- OUTSIDE RECORDS SUMMARY | 2025-01-01 10:24 | XMS_ITS | Clinical Summary ---
Author Organization [facility] [address] Address [address] [place] [address] Care Team Providers Care Actuarial Science Teacher Name Role Phone Jaun Del Real MD Primary Care Provider [phone] Adan Craft MD Unavailable [phone] Allergies Active Allergy Reactions Criticality Noted Date Comments Sulfa (Sulfonamide Antibiotics) Medications levocetirizine (XYZAL) 5 mg tablet take 1 tablet (5MG) by oral route every day in the evening 0 04/11/2012 Active multivitamin-Ca -iron-minerals tablet Take by mouth daily. Active cholecalciferol (VITAMIN D-3) 2000 unit capsule Take 1 capsule (2,000 Units total) by mouth daily Active aspirin 81 mg enteric coated tablet Take 1 tablet (81 mg total) by mouth daily 90 tablet 12 02/05/2024 Active pitavastatin calcium (LIVALO) 2 mg tablet TAKE 1 TABLET(2 MG) BY MOUTH EVERY NIGHT 90 tablet 10/08/2024 Active lisinopriL (PRINIVIL,ZESTR IL) 10 mg tablet Take 1 tablet (10 mg total) by mouth daily 90 tablet 1 11/02/2024 Active Active Problems Problem Noted Date Diagnosed Date Acute myocardial infarction of anterolateral wal l 09/29/2013 Overview (06/21/2016): AMI ANTEROLATERAL,UNSPEC Benign hypertension 08/01/2013 Overview (06/21/2016): BENIGN HYPERTENSION Arteriosclerotic vascular disease 08/01/2013 Overview (06/22/2016): ASCVD Encounters Date Type Department Care Team Description 11/02/2024 Telephone [facility] Cardiology [address] [place] [address] Jorge Sloan MD 10/12/2024 9:24 AM CDT - 10/12/2024 11:59 PM CDT Hospital Encounter [facility] Advanced Medicine Breast Imaging [facility] Advanced Medicine ([facility]) [address] [place] [address] Screening mammogram, encounter for Discharge Disposition: Discharge to home or self care from Last 3 Months Surgical History Surgery Date Site/Laterality Comments SECTION Caesarean Section INGUINAL HERNIA REPAIR Hernia repair, inguinal OTHER SURGICAL HISTORY Coronary Artery Disease, NonSTEMI: SECTION 03/18/1994 - 03/17/1995 HYSTERECTOMY 2010 uterus only Medical History Medical History Date Comments Hx Other Medical 2007 Coronary Artery Disease, NonSTEMI Hypertension Hypertension Hx Other Medical HLP Heart disease Kidney stone 2015 & 2020 Family History Medical History Relation Name Comments Heart attack Father Ron Velarde Heart disease Father Ron Velarde Hypertension Father Ron Velarde Allergy (severe) Mother Elodia Jose (Pat) Heart attack Mother Elodia Jose (Pat) Heart disease Mother Elodia Jose (Pat) Hypertension Mother Elodia Jose (Pat) Diabetes Mother's Brother Spencer Garcia Breast cancer Mother's Sister Isela Garcia Cancer Mother's Sister Isela Garcia Relation Name Status Comments Father Ron Velarde Mother Elodia Jose (Pat) Mother's Brother Spencer Garcia Mother's Sister Isela Garcia Social History Tobacco Use Types Packs/Day Years Used Date Smoking Tobacco: Never Cigarettes Smokeless Tobacco: Never Tobacco Cessation:Counseling Given: Not Answered Alcohol Use Standard Drinks/Week Comments No 0 (1 standard drink = 0.6 oz pur e alcohol) Comments No Sex and Gender Information Value Date Recorded Sex Assigned at Not on file Legal Sex Female 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 SALES MANAGER Gender Identity Female 02/24/2020 8:26 AM ADVERTISING SALES MANAGER Sexual Orientation Straight 02/24/2020 8: 26 AM ADVERTISING SALES MANAGER Obstetrics History Para Term AB IAB SAB Ectopic Multiple Livin g Live Births 4 2 Date Outcome GA Total Labor Labor/2nd/3rd Weight Sex Type Anes PTL Shauna A1 A5 Name Clin Last Filed Vital Signs Vital Sign Reading Time Taken Comments Blood Pressure 110/60 02/05/2024 9:31 AM ADVERTISING SALES MANAGER Pulse 82 02/05/2024 9:31 AM ADVERTISING SALES MANAGER Temperature - - Respiratory Rate 12 09/19/2016 10:38 AM CDT Oxygen Saturation 97% 02/05/2024 9:31 AM ADVERTISING SALES MANAGER Inhaled Oxygen Concentration - - Weight 72.6 kg (160 lb) 10/12/2024 9:35 AM CDT Height 175.3 cm (5' 9) 10/12/2024 9:35 AM CDT Body Mass Index 23.63 10/12/2024 9:35 AM CDT Plan of Treatment Health Maintenance Due Date Last Done Comments Colon Cancer Screening-Colonoscopy 1963 Depression Screening 1963 Hepatitis C Screening 1963 DTaP/Tdap/Td Vaccine (1 - Tdap) 1974 Hepatitis B Screening 1981 Regular Well Visit/Exam 18-64 1981 Zoster Vaccine (1 of 2) 2013 Influenza Vaccine (#1) 2024 Breast Cancer Screening-Mammogram 10/12/2025 10/12/2024, 10/10/2023, 10/24/2022, Additional history exists Pneumococcal vaccine <65 Aged Out 12/18/2017 No longer eligible based on patient's age to complete this topic Procedures Procedure Name Priority Date/Time Associated Diagnosis Comments SCREENING MAMMOGRAM BILATERAL W DICKSON Schedule Routine, Read Routine (OP Routine) 10/12/2024 9:42 AM CDT Screening mammogram, encounter for from Last 3 Months Results * Screening Mammogram Bilateral W Dickson (10/12/2024 9:42 AM CDT) Anatomical Region Laterality Modality Breast Bilateral Mammography Impressions 10/13/2024 10:38 AM CDT Bilateral No evidence of malignancy in either breast. OVERALL BI-RADS FINAL ASSESSMENT: 1 - Negative RECOMMENDATION: Recommend bilateral annual screening mammography. Narrative 10/13/2024 10:38 AM CDT EXAMINATION: Screening Mammogram Bilateral W Dickson: 10/12/2024 COMPARISON: Relevant prior studies available at the time of interpretation were reviewed, including the most recent mammogram on: 10/10/2023. TECHNIQUE: Mammography was performed with 2D and digital breast tomosynthesis (DBT) images. CAD was utilized. BREAST PARENCHYMAL COMPOSITION: There are scattered areas of fibroglandular density. FINDINGS: Bilateral There is no suspicious mass, calcification, or architectural distortion in either breast. us Self Screening Mammogram IMG MAMMO PROCEDURES Fi nal Result from Last 3 Months Insurance [employer] [facility] [id number] [facility] [id number] [facility] [id number] [facility] Care Teams Actuarial Science Teacher Relationship Specialty Start Date End Date Jaun Del Real MD PCP - General Family Practice 01/30/23 Adan Craft MD [address] [facility] [address] [place] [address] Referring Physician Obstetrics and Gynecology 10/12/24
== END 2025-01-01 09:49 | disposition home or self-care (01) ==
PROVIDERS: PCP Nurse Practitioner Family; Visit Provider Orthopaedic Surgery
DX: R94.31 Abnormal electrocardiogram [ECG] [EKG] (principal); I10 Essential (primary) hypertension
CPT/HCPCS: 93005

== ENCOUNTER 2025-01-08 02:14 | Day surgery (SDC) | payer OTHER, SELFPAY ==
--- NOTE | 2024-12-29 16:10 | SUR.PREOP ---
[facility] has started construction of its new state of the art ER which will open Spring 2026. With this, we anticipate parking may be a challenge for some our surgical patients and families. Parking spaces are limited but are available for all Surgical, obstetrics, and ER patients sharing this lot. If you arrive and find you are having a hard time finding a parking space, please note that we understand the challenges, please drive around the hospital and park near Hospital Entrance 1. When you enter this entrance, you can ask a volunteer to direct or take you back to the surgical waiting area to check in. We appreciate everyone?s understanding of these expected challenges while we build for your future. Report to the Outpatient Waiting Room, entrance under the green pavilion located off [address], at time __730am___ on date _01/08/25___. Planned Procedure Time: _930am .? Time changes happen often and if your time is changed the preop area will call you the afternoon before. - You and your visitor will be asked to self-screen and do not enter if you have any COVID symptoms. Please call surgeon if you need to reschedule. - A mask is optional within the hospital at this time. Patients may have clear liquids (water, carbonated beverages, clear teas, apple juice) until 3 hours prior to surgery with a maximum of 20 ounces. - No food from midnight until time of surgery and no smoking, or chewing tobacco (or any form of nicotine). No chewing gum, candy or mints. - Infants may have breast milk until 4 hours before surgery, formula 6 hours prior to surgery. Take only the following medications with a SIP of water on the morning of surgery: none DO NOT STOP ANY OF YOUR OTHER PRESCRIPTION MEDICATIONS PRIOR TO SURGERY EXCEPT THE FOLLOWING Hold all vitamins and supplements for 3 days per anesthesiologist. Medications to discontinue per physician ____Aspirin 81mg 5 Days prior per her provider Date to take last dose_vitamins 01/04/25___ Please no make-up, nail bengali, hairspray, perfume, deodorant, or body powder the day of surgery.? No jewelry (including any body piercings) or valuables the day of surgery, leave them at home.? Please take a shower or bath the night before, or the morning of, surgery with an antibacterial soap.? Wear comfortable, loose fitting clothing.? - Jewelry must be removed prior to entering the operating room.? Rings and piercings that are not removed may be cut off. - The hospital will not accept responsibility for valuables.? - Please leave all valuables, including medications, at home the day of surgery. If you are going home after surgery, a licensed pharmacy delivery driver must drive you home.? - NO public transportation without another adult if you receive anesthesia. - We recommend that an adult stay with you for 24 hours following discharge. - We also recommend that you do not drive, make important decision, drink alcoholic beverages, or take any drugs that were not prescribed by your health care provider for at least 24 hours after your discharge time. Follow any additional instructions given to you from your surgeon. Telephone instructions given to ___Wendy and asked if any additional questions and then verbalized understanding. Patient advised to call surgeon office or pre surgery nurse liaison [phone] if any additional questions.
[2024-12-29 16:35] VITALS: BMI 23.5
[2025-01-08] VITALS (11 sets, daily range): BP systolic 134–172; BP diastolic 69–90; PULSE 55–72; RESP 14–16; TEMP 36.1–37.3; O2SAT 100
--- OUTSIDE RECORDS SUMMARY | 2025-01-08 02:18 | XMS_ITS | Encounter Summary ---
Author Organization [facility] Address [address] [address] Care Team Providers Care Gray Mixing Operator Name Role Phone Jake Dowell MD Primary Care Provider [phone] Jaek Dowell MD Primary Care Provider [phone] Francisco Goodman MD Primary Care Provider [phone] Chris Roa MD Primary Care Provider [phone] Jaun Del Real MD Primary Care Provider [phone] Adan Craft MD Unavailable [phone] Encounter Details Date Type Department Care Team (Late st Contact Info) Description 05/25/2016 Orders Only [facility] Provider, MD Jin [address] [place] [id number] Social History Tobacco Use Types Packs/Day Years Used Date Smoking Tobacco: Never Alcohol Use Standard Drinks/Week Comments No 0 (1 standard drink = 0.6 oz pur e alcohol) Comments Unknown Sex and Gender Information Value Date Recorded Sex Assigned at Not on file Legal Sex Female 12:50 AM CARCASS TRIMMER Gender Identity Female 02/24/2020 8:26 AM CARCASS TRIMMER Sexual Orientation Straight 02/24/2020 8: 26 AM CARCASS TRIMMER documented as of this encounter Plan of [...] on filedocumented in this encounter Care Teams Gray Mixing Operator Relationship Specialty Start Date End Date Jake Dowell MD [address] [place] [address] PCP - General 06/15/16 02/28/21 Jake Dowell MD [address] [place] [address] PCP - General 08/13/08 06/14/16 Francisco Goodman MD [address] [facility] [address] [place] [address] PCP - General Internal Medicine 03/01/21 03/06/22 Chris Roa MD [address] [facility] [facility] [address] [place] [address] PCP - General Internal Medicine 03/07/22 01/29/23 Jaun Del Real MD [address] [facility] [address] [place] [address] PCP - General Family Practice 01/30/23 Adan Craft MD [address] [place] [address] Referring Physician Obstetrics and Gynecology 10/12/24 documented as of this encounter
--- NOTE | 2025-01-08 07:22 | WPDHPUPDATE1 ---
History and Physical Update Update Date/Time: 01/08/25 07:22 History and Physical has been reviewed, including an updated exam of the patient. There are NO changes in the patient's condition. Risks, benefits, and alternatives have been discussed and questions answered. Patient agrees to proceed with procedure.
--- NOTE | 2025-01-08 08:26 | WPDANESEPPF ---
Anes - Initial Pre Proc Eval Procedure: Operation Date: 01/08/25 09:30 Proposed Procedures p Left Knee Arthroscopy - Krzysztof Law MD Date/Time: 01/08/25 08:26 Surgeon: Krzysztof Law MD Pre Op Diagnosis: lt knee medial meniscus tear Patient Data Age: 59 Gender: F Height: 1.75 m Weight: 72.2 kg Allergies Allergy/AdvReac Type Severity Reaction Status Date / Time Sulfa (Sulfonamide Allergy Intermediate RASH Verified 12/29/24 16:17 Antibiotics) Home Medications ?Medication ?Instructions ?Recorded ?Confirmed ?Type aspirin 81 mg tablet,delayed 81 mg PO DAILY 10/14/20 12/29/24 History release levocetirizine 5 mg tablet (Xyzal) 5 mg PO DAILY PRN Allergy Symptoms 10/14/20 12/29/24 History lisinopril 10 mg tablet 10 mg PO DAILY 10/14/20 12/29/24 History tretinoin 0.025 % topical cream 1 applic topical EVERY OTHER DAY 10/14/20 12/29/24 History pitavastatin calcium 1 mg tablet 2 mg PO DAILY 05/21/24 12/29/24 History (Livalo) cholecalciferol (vitamin D3) 50 50 mcg PO DAILY 06/09/24 12/29/24 History mcg (2,000 unit) capsule diclofenac sodium 1 % topical gel 4 g topical QID #100 grams 06/09/24 12/29/24 Rx (Voltaren Arthritis Pain) protein 1 ea PO DAILY 06/09/24 12/29/24 History cetirizine 10 mg tablet (All Day 10 mg PO DAILY 12/29/24 12/29/24 History Allergy (cetirizine)) hydrocodone 5 mg-acetaminophen 325 1 tablet PO Q12H PRN pain #20 tabs 01/08/25 Rx mg tablet Patient hx anesthesia problems: none Family hx anesthesia problems: none Results Review: All pre-operative results and documents have been reviewed as part of the pre-operative evaluation. [facility] Past Medical History Medical History Kidney stones Myocardial infarction Seasonal allergies Dyslipidemia Surgical History Surgical History H/O inguinal hernia repair Previous section H/O: hysterectomy Family History Family History Mother , HEART / STROKE No problems noted. Father , HEART PROBLEMS No problems noted. Social History Social History Smoking status: Never smoker Second hand tobacco smoke exposure: No Alcohol intake: current Alcohol use details: occasionally Substance use: never Substance use type: does not use Do You Feel Safe in your Home?: Yes Lack of Transportation: No Lack of Food: Never True Current Housing: I Have Housing Concerned About Future Housing: No Difficulty Paying Gas/Electric Bills: No Difficulty Paying for Meds: No Currently Unemployed: No Education: High School Diploma/GED Difficulty w/ Childcare or Family Care: No Living arrangements: with family Occupation/Education: unemployed Gender identity (if verbalized by the patient): Female Sexual Orientation (if Verbalized by the Patient): Straight or Heterosexual Spiritual care concerns: No Anes - Eval Final PreProcedure Day of Procedure 01/08/25 08:26 Patient weight: normal Heart: regular rate and rhythm Lungs: clear to auscultation Airway: Mallampati scale class II Neurological: alert and oriented Last oral intake: >/= 8 hours ASA classification: III Emergent: no Anesthetic plan: proceed Results Review: All pre-operative results and documents have been reviewed as part of the pre-operative evaluation. Informed Consent: The patient's anesthetic plan and its attendant risks and benefits were discussed with the patient/family/POA. Questions were solicited and answers provided to the satisfaction of the patient/family/POA.
[2025-01-08] MEDS: LACTATED RINGERS 1,000 ML 30 ML IV CONT (08:40)
[2025-01-08] MEDS: CELECOXIB 200 MG CAPSULE PO (08:40)
[2025-01-08] MEDS: ACETAMINOPHEN 500 MG TABLET 1000 MG PO (08:40)
[2025-01-08] MEDS: ceFAZolin 2 GM in SODIUM CHLORIDE 0.9% IV 50 ML 100 ML IVPB (10:07)
[2025-01-08] MEDS: BUPivacaine HCL 0.5% 10 ML AMP 30 ML INFILTRATE (10:07)
--- NOTE | 2025-01-08 11:24 | W.PM.PROC2 ---
Procedure Note - Detailed Date of Procedure 01/08/25 Pre-op Diagnosis lt knee medial meniscus tear Post-op Diagnosis Same Procedure Performed RIGHT KNEE SCOPE Surgeon Krzysztof Law MD Anesthesia General Description of Procedure PATIENT WAS TAKEN TO THE OR. RIGHT LEG WAS PREPPED AND DRAPED STERILE. TROCARS WERE PLACED IN THE USUAL FASHION. CAMERA WAS INTRODUCED. THERE WAS CHONDROMALACIA TO THE PATELLA FEMORAL JOINT. THERE WAS A LOT OF SYNOVITIS IN ALL COMPARTMENTS. THE MEDIAL COMPARTMENT SHOWED MILD CHONDROMALACIA TO THE MEDIAL FEMORAL CONDYLE. A SHAVER WAS USED TO PREFORM A CHONDROPLASTY. THERE WAS A COMPLEX MEDIAL MENISCUS TEAR. THE TEAR WAS RESECTED WITH A BITER AND A SHAVER DOWN TO A SMOOTH BASE. THE ACL WAS INTACT. THE LATERAL MENISCUS WAS NOT TORN. THE LATERAL COMPARTMENT HAD NO SIGNIFICANT CHONDROMALACIA. A SYNOVECTOMY WAS PREFORMED. THE PATELLO FEMORAL JOINT UNDERWENT CHONDROPLASTY. THERE WAS GRADE 2 CHONDROMALACIA. SYNOVECTOMY WAS PREFORMED IN THE SUPERIOR MEDIAL COMPARTMENT. THE WOUNDS WERE APPROXIMATED WITH 4.0 NYLON. STERILE DRESSING WAS APPLIED. PATIENT WAS EXTUBATED. Estimated Blood Loss 5 Complications No immediate complications Condition Stable Disposition PACU
[2025-01-08] MEDS: fentaNYL CITRATE INJ (*CRX) 100 MCG/2 ML VIAL 25 MCG IV PUSH ×5 (11:43→12:22)
== END 2025-01-08 13:38 | disposition home or self-care (01) ==
PROVIDERS: PCP Nurse Practitioner Family; Visit Provider Orthopaedic Surgery
PROC: (CPT 29870; principal; 2025-01-08 09:30)
DX: S83.232A Complex tear of medial meniscus, current injury, left knee, initial encounter (principal); M94.262 Chondromalacia, left knee; M65.862 Other synovitis and tenosynovitis, left lower leg; X58.XXXA Exposure to other specified factors, initial encounter; E78.5 Hyperlipidemia, unspecified; I25.2 Old myocardial infarction; Z79.82 Long term (current) use of aspirin; Z79.891 Long term (current) use of opiate analgesic; Z98.890 Other specified postprocedural states; Z87.442 Personal history of urinary calculi; Z82.49 Family history of ischemic heart disease and other diseases of the circulatory system
CPT/HCPCS: 29881; 29876; J0690; A9270; J2003; J2250; J2704; J3010; J7120